=== PATIENT | male | born 1945 | race Caucasian/White ===

== ENCOUNTER → 2024-01-24 08:04 | Outpatient (REF) | payer MEDICARE, OTHER, SELFPAY ==
[2024-01-24 09:00] LABS: Blood Urea Nitrogen 11 mg/dl (9-20)
== END ==
LOC: RAD 08:04
PROVIDERS: ATTENDING PHYSICIAN Internal Medicine Hematology & Oncology; FAMILY PHYSICIAN Internal Medicine
DX: C18.7 Malignant neoplasm of sigmoid colon (principal); D50.0 Iron deficiency anemia secondary to blood loss (chronic)
CPT/HCPCS: 36415; 71260; 74177; 82565; 84520; Q9967

== ENCOUNTER 2024-02-07 23:38 | Observation (INO) | payer MEDICARE, OTHER, SELFPAY ==
[2024-02-07 18:09] VITALS: BP 151/84
[2024-02-07 19:00] VITALS: BP 105/12
[2024-02-07 19:03] LABS: % Basophils 0.5 % (0-2); % Eosinophils 1.8 % (0-6); % Immature Granulocytes 0.2 % (0-0.5); % Lymphocytes 28.5 % (20.5-51.1); % Monocytes 15.4 % (1.7-9.3); % Neutrophils 53.6 % (42.2-75.2); Absolute Eosinophils 0.1 10^3/uL (0-0.7); Absolute Lymphocytes 1.6 10^3/uL (1.2-3.4); Absolute Monocytes 0.9 10^3/uL (0.1-0.6); Hematocrit 42.1 % (39.0-52.0); Hemoglobin 13.5 g/dL (13.0-18.0); Mean Corp Hgb Conc. 32.1 g/dL (33.0-37.0); Mean Corpuscular Volume 87.3 fL (80.0-94.0); Mean Platelet Volume 10.7 fL (7.4-10.4); Nucleated Red Blood Cells % 0 % (-); Platelet Count 160 10^3/uL (130-400); Red Blood Cell Count 4.82 10^6/uL (4.70-6.10); Red Cell Dist. Width 14.2 % (11.5-14.5); White Blood Cell Count 5.5 10^3/uL (4.8-10.8)
--- NOTE | 2024-02-07 19:05 | ED.CVA ---
History of Present Illness
General
Chief Complaint: CVA/TIA Symptoms
Time Seen by Provider: 02/07/24 18:13
Onset of Stroke Symptoms
Onset of symptoms known: Yes
Date of onset of symptoms: 02/07/24
Time of onset of symptoms: 17:00
History of Present Illness
History of Present Illness:
78-year-old male presents to the emergency department for evaluation of a 10-minute episode of slurred speech and left-sided facial droop that occurred after waking up from a nap at 1700 hrs. today. witnessed the episode and reports it lasted
10 minutes before resolving. administered him 81 mg aspirin during the event. No prior history of stroke. Does not take any antiplatelets or anticoagulants. Currently denies any complaints. No associated chest pain or shortness of breath
Past History
Past History
ED Past Medical History: HTN
ED Past Surgical History: Appendectomy, Cholecystectomy, Tonsilectomy and Other
Social History
Tobacco: Non-smoker
Personal:
Living: with family
Review of Systems
Review of Systems
Allergies reviewed?: Yes
All Other Systems: ROS reviewed and negative except as documented in HPI and ROS
Phy Exam
Physical Exam
Physical Exam:
GEN: Well appearing, NAD, WDWN
HEENT: Oral mucosa moist, no scleral icterus, no nasal congestion
Cardiac: Regular rate
Lung: No respiratory distress, no tachypnea
MSK: No gross deformity or injuries
Skin: Good color, no pallor or jaundice, no rashes
Neuro: AO x3; CN II-XII grossly intact. BUE strength 5/5 in all juan, sensation intact and symmetric. BLE strength 5/5 in all juan, sensation intact and symmetric
Psych: Calm, cooperative
Course
Orders/Labs/Results
Orders:
Orders
02/07/24 18:46
Electrocardiogram (*1) Urgent
Reason for Study: TIA/Stroke
EKG- Treatment ONCE
02/07/24 18:57
Complete Blood Count/With Diff Urgent
Comprehensive Metabolic Panel Urgent
02/07/24 19:04
CT Head & Neck Angio W/wo IV Urgent
Comment:
Reason For Exam: TIA, facial droop/slurred speech
02/07/24 19:44
Urinalysis Reflex To Culture Urgent
Date Specimen was Collected: 02/07/24
Time Specimen was Collected: 19:41
02/07/24 22:04
Aspirin 325 mg PO NOW STA
Clopidogrel Bisulfate [Plavix] 300 mg PO NOW STA
02/07/24 22:31
Admit/Transfer Patient As Directed
Co-Sign Provider:
Level of Care: Observation services
Assign to:: Telemetry
Physician / Group: aryan
Diagnosis: TIA
Reason for Telemetry: CVA/TIA
Date to Stop Telemetry: 02/10/24
Time to Stop Telemetry: 11:00
PRN Pain Medication Management As Directed
May give lesser potent ordered pain med per pt: Yes
preference::
Protocol:: Medication orders for pain may be administered in a
manner that supports deferring to patient preference
when the pt is:
- Requesting an ordered lesser potent pain medication.
Least to most potent pain medications are defined
as: acetaminophen < NSAID < tramadol < opioids
(morphine, oxycodone, hydromorphone).
- Requesting a lesser dose of the same medication IF
ORDERED.
- Requesting a less intrusive route of administration
if both routes are prescribed by the provider (PO <
IV).
02/07/24 22:32
Code Status As Directed
Resuscitation Status: Full Code
02/08/24 00:50
Acetaminophen [Tylenol/Feverall] 650 mg RECTAL Q4HPRN PRN
Acetaminophen [Tylenol] 650 mg PO Q4HPRN PRN
Clonazepam [Klonopin] 0.5 mg PO DAILYPRN PRN
02/08/24 00:50
Case Management Consult ONCE
Case Management Consult: Discharge Planning
Comment: stroke/tia
DIETARY CONSULT Routine
Reason for Consult: stroke/TIA
NEUROLOGY CONSULT Urgent
Consulting Provider: Kelvin Malloy
Was physician already notified: Yes
Pr Internship Urgent
MR Brain Without Contrast Routine
Comment:
Reason For Exam: stroke/TIA
Recent pill cam endoscopy?: No
Activity As Directed
Activity Level: As Tolerated
NIH Stroke Scale As Directed
Directions: Per protocol
Comment: every shift and with any change in condition or mental status
Neurological Checks As Directed
Frequency: q4h
Additional Instructions:: q4h x 24h upon admission to the floor, then qshift & with any change in condition
and mental status
Patient Education As Directed
Type: Stroke education packet
Comment: provide to patient and family
Pneumatic Compression Sleeves As Directed
Type: Thigh high
Vital Signs As Directed
Frequency: Per unit guidelines
Ot Eval And Treat Routine
Pt Eval And Treat Routine
Activity Level: As Tolerated
Speech Therapy Eval & Treat Routine
DX Deep Vein Thrombosis Video Routine
02/08/24 Breakfast
Cholesterol Lowering
At Your Request: Full Participation
Cardiovascular Evaluation IN AM
Glycohemoglobin (HgbA1c) Routine
02/08/24 08:00
Aspirin Chewable [Low Strength Aspirin] 81 mg PO DAILY
Clopidogrel Bisulfate [Plavix] 75 mg PO DAILY
Diazepam [Valium] 5 mg PO ONCE ONE
Pantoprazole [Protonix] 40 mg PO DAILY
02/08/24 12:00
Atorvastatin [Lipitor] 40 mg PO NOON
Chlorthalidone [Hygroton] 12.5 mg PO NOON
Fluoxetine HCl [Prozac] 40 mg PO NOON
02/10/24 11:00
DC Protocol for Telemetry ONCE
Abnormal Lab Results
02/07/24
18:57
MCHC 32.1 L g/dL
(33.0-37.0)
MPV 10.7 H fL
(7.4-10.4)
Absolute Monos (auto) 0.9 H 10^3/uL
(0.1-0.6)
Monocytes % 15.4 H %
(1.7-9.3)
Glucose 111 H mg/dl
(70-99)
Total Protein 6.1 L g/dl
(6.3-8.2)
Albumin 3.4 L g/dl
(3.5-5.0)
02/07/24 18:57
02/07/24 18:57
Vital Signs
Initial and Last Documented VS:
Initial Vital Signs
Pulse Resp BP Pulse Ox
74 20 151/84 99
02/07/24 18:09 02/07/24 18:09 02/07/24 18:09 02/07/24 18:09
Last Documented Vital Signs
Temp Pulse Resp BP Pulse Ox
98.8 F 69 20 148/86 98
02/08/24 01:07 02/08/24 01:07 02/08/24 01:07 02/08/24 01:07 02/08/24 01:07
MDM/Problems Addressed
MDM/Problems Addressed:
Patient loretta asymptomatic in the emergency department. Although CT angiogram is reassuring patient will be admitted to the hospitalist service for further neuroevaluation and MRI. Will load dual antiplatelet therapy at this time. Case was
discussed via [employer] messaging with neurology who agrees with plan
*Critical Care Note
Total Time (30-74mins, 75-104mins- exclusive of procedures): Not Applicable
ED Attending Note
-
Portions of this chart may have been created with voice recognition software.� Occasional wrong word or��sound alike� substitutions may have occurred due to the inherent limitations of voice recognition software.
Discharge Plan
Departure
Patient Disposition: Admit
Date of Disposition: 02/07/24
Time of Disposition: 22:06
Admit to: Med/Surg
Presentation/result/management discussed w/ accepting MD/DO: Hospitalist
Discharge Problem:
Transient ischemic attack (TIA)
Interventions
Interventions:
*Risk Screen - Suicide Last Done: 02/08/24 01:06
*General Assessment Last Done: 02/07/24 18:45
*Neglect/Abuse Screening Last Done: 02/07/24 18:45
*ED COVID-19 Vaccine History Last Done: 02/08/24 01:06
*Nursing Disposition Last Done: 02/08/24 00:52
ED- Pulmonary Assessment Last Done: 02/07/24 18:45
ED- Neurological Assessment Last Done: 02/07/24 18:16
ED- Cardiac Assessment Last Done: 02/07/24 20:17
ED Swallowing Screen Last Done: 02/07/24 18:44
Discharge Date and Time
Discharge Date/Time: 02/08/24 00:52
[2024-02-07 19:41] LABS: ALT (SGPT) 21 U/L (0-50); AST (SGOT) 28 U/L (17-59); Albumin 3.4 g/dl (3.5-5.0); Alkaline Phosphatase 45 U/L (38-126); Blood Urea Nitrogen 14 mg/dl (9-20); Calcium 8.4 mg/dl (8.4-10.2); Carbon Dioxide 26 mmol/L (22-30); Chloride 104 mmol/L (98-107); Glucose 111 mg/dl (70-99); Potassium 3.8 mmol/L (3.5-5.1); Sodium 139 mmol/L (135-145); Total Bilirubin 0.4 mg/dl (0.2-1.3); Total Protein 6.1 g/dl (6.3-8.2); eGFR > 60.00
[2024-02-07 19:55] LABS: Urine Albumin Negative (Neg - Trace); Urine Bilirubin Negative (Negative); Urine Character Clear (Clear); Urine Color Straw; Urine Glucose Negative (Negative); Urine Ketone Negative (Negative); Urine Leukocyte Negative (Negative); Urine Nitrite Negative (Negative); Urine Occult Blood Negative (Negative); Urine Urobilinogen Negative (Neg - 1+)
--- NOTE | 2024-02-07 22:07 | HPS.HSE ---
Addendum entered and electronically signed by Rahul Esquivel DO 02/07/24 23:54:
Patient seen and examined independently. Agree with findings and plan as set forth by KATHYA Mcgowan.
Patient is a 78y M with PMH significant for prostate cancer, colon cancer and hypertension who presents to ED for evaluation of speech abnormality and L facial droop. Patient took a nap this afternoon. He woke to use the bathroom and then fell
asleep again a short time later. When he woke a second time he felt 'out of sorts'. His noted L facial droop and patient appeared to be having difficulty speaking with slurring words and thick speech. Patient denies any weakness of the arms
or legs. No headache or vision changes. No prior history of similar symptoms.
Ass:
Dysarthria, Facial Droop
CVA / TIA
Benign Hypertension
Dyslipisemia
Anxiety / Depression
GERD
Plan:
Observe overnight for further evaluation and treatment.
Patient is symptom-free at present.
Follow neuro exam overnight.
MRI and Neuro evals in the AM.
DAPT for now.
Original Note:
Family Physician
-
Family Physician: Clinton Cuenca
Chief Complaint
-
expressive aphasia
slurred speech
left facial droop
History of Present Illness
78-year-old male with PMH for prostate cancer, colon cancer, GERD, hyperlipidemia, hypertension, tremor, depression presented to us with slurred speech, expressive aphasia, left facial droop. Patient woke up from a nap and noted to have slurred and
expressive aphasia associated with left facial droop. The symptoms lasted for 10 minutes. His gave him a baby aspirin. Patient denied any headache, dizzy. Patient denied any numbness, tingling, blurred vision. Patient denied any chest pain
or short of breath. Patient denied abdominal pain, nausea, vomiting, diarrhea. Patient denied dysuria,hematuria.
CVA aspirin Plavix in the ER. Admitting for further management
Medical History
Past Medical History
Past Medical History: Reports Other
Additional Past Medical History:
prostate cancer
colon cancer
arteriosclerosis of b/l carotid arteries
gerd
hld
htn
depression
IBS
Past Surgical History: Reports Other
Additional Past Surgical History:
colon cancer resection
tonsillectomy
appendectomy
left lobe of the thyroid removed
left meniscus repair
cholecystectomy
prostatectomy
left inguinal hernia repair
melanoma removal
MOHS surgery
ventral incisional hernia repair
s
Social History
Tobacco: Non-smoker
Alcohol: None
Drug: None
Personal:
Living: With Family
Family History
Family History: Not pertinent
Allergies / Home Medications
Allergies reflects when Allergies were last updated in [facility].
Home Medications with original date entered in [facility]
Allergy/Medication List:
Allergies
Allergy/AdvReac Type Severity Reaction Status Date / Time
No Known Drug Allergies Allergy Unknown Verified 02/07/24 18:09
Home Medications
ascorbic acid (vitamin C) 1,000 mg tablet (Vitamin C) 1,000 mg PO NOON 02/01/21
atorvastatin 40 mg tablet 40 mg PO NOON 02/01/21
chlorthalidone 25 mg tablet 12.5 mg PO NOON 02/01/21
fluoxetine 40 mg capsule 40 mg PO NOON 02/01/21
Cbd Gummy 1 gummy PO HS 07/18/22
cholecalciferol (vitamin D3) 50 mcg (2,000 unit) tablet (Vitamin D3) 50 mcg PO NOON 07/18/22
pantoprazole 40 mg tablet,delayed release (Protonix) 40 mg PO DAILY 07/18/22
clonazepam 0.5 mg tablet 0.5 mg PO DAILYPRN PRN anxiety 02/07/24
Review of Systems
-
Constitutional: Reports No Symptoms
EENT: Reports No Symptoms
Respiratory: Reports No Symptoms
Cardiac: Reports No Symptoms
Abdomen/GI: Reports No Symptoms
: Reports No Symptoms
Musculoskeletal: Reports No Symptoms
Skin: Reports No Symptoms
Neurological: Reports Other (Slurred speech, expressive aphasia and left facial droop)
Endocrine: Reports No Symptoms
Hematologic/Lymphatic: Reports No Symptoms
Psych: Reports No Symptoms
Physical Exam
Vital Signs
Vital Signs
Pulse Resp BP Pulse Ox
74 12 105/12 97
02/07/24 20:15 02/07/24 20:15 02/07/24 19:00 02/07/24 20:15
Physical Exam
General: Well Developed, Well Nourished and No Apparent Distress
HEENT: NormoCephalic, Moist mucous membranes and Atraumatic
Respiratory: Clear
Cardiac: S1/S2 and Regular Rhythm; No Murmur or Rub
GI: Soft, Non Tender, Non Distended and Normal Bowel Sounds; No Organomegaly
Rectal: Deferred by Provider
Musculoskeletal: No Clubbing, No Cyanosis and No Edema
Skin: No Rash
Neuro: AO x 3 and Nonfocal/grossly intact
Psych: Calm
Laboratory Results
-
02/07/24 18:57
02/07/24 18:57
Laboratory Results
Total Bilirubin 0.4 mg/dl (0.2-1.3) 02/07/24 18:57
AST 28 U/L (17-59) 02/07/24 18:57
ALT 21 U/L (0-50) 02/07/24 18:57
Alkaline Phosphatase 45 U/L (38-126) 02/07/24 18:57
Data Reviewed
-
CT Scan: Report Reviewed by me
Lab Data: Labs Reviewed by me
Impression/Plan
-
#left facial droop/dysarthria/aphasia r/o acute CVA/TIA
-asa and Plavix continued
-obtain MRI
-obtain a1c,lipid profile
-PT/OT
-neuro consult
-head neck CTA with o acute pathology identified. No evidence of M1 nor M2 occlusion. No focal stenosis.Stable enlarged heterogeneous thyroid gland suggesting underlying nodules with substernal extension.Nonacute lacunar infarct of the left
lentiform nucleus.Moderate atrophy.
# Hyperlipidemia
-Atorvastatin continued
#Hypertension
-Chlorthalidone continued
#Anxiety
-Clonazepam continued/fluoxetine continued
#GERD
-Protonix continued
#DVT prophylaxis SCDs
#CODE STATUS
-Full code
[2024-02-07] MEDS: PLAVIX 300 MG PO (22:26)
[2024-02-07] MEDS: ASPIRIN 325 MG PO (22:26)
[2024-02-07 22:28] VITALS: BP 127/110
[2024-02-08] VITALS (7 sets, daily range): BP systolic 134–150; BP diastolic 80–94; PULSE 77–78; O2SAT 96–97; BMI 31.0
--- NOTE | 2024-02-08 01:15 | PTCARENOTE ---
Pt arrived to room 437-02. Pt ambulated from stretcher to bed. Pt AAOx3, VSS. Pt oriented to room, call murrell placed within reach. Refer to NIH stroke scale.
[2024-02-08] MEDS: PLAVIX 75 MG PO (08:25)
[2024-02-08] MEDS: LOW STRENGTH ASPIRIN 81 MG PO (08:26)
[2024-02-08] MEDS: PROTONIX 40 MG PO (08:26)
[2024-02-08] MEDS: VALIUM 5 MG PO (08:51)
[2024-02-08 09:01] LABS: HDL Cholesterol 23 mg/dl; LDL Cholesterol, Calculated 46 mg/dl; Total Cholesterol 85 mg/dl (50-199); Triglyceride 81 mg/dl (10-149); Very Low Density Lipoprotein 16 mg/dl (0-30)
--- NOTE | 2024-02-08 09:35 | CON.NEURO4 ---
Consultation - Neurology 4
-
CONSULTING PHYSICIAN: Dr. Kelvin Malloy
REFERRING PHYSICIAN: Araceli RASHEED
DICTATED BY: KATHYA Doss
DATE/TIME OF REQUEST: 02/07/2024
DATE/TIME OF CONSULTATION: 02/08/2024
Reason for Consultation: Stroke symptoms
History of Present Illness:
This is a 78 year old right handed male who has presented to the hospital with left facial droop and transient speech changes starting yesterday around 5 PM. Patient reports he was in his usual state of health when he decided to take an afternoon
nap. He woke up around 5:00 to go to the bathroom and felt normal. He then went to the bathroom and went back to sleep. He woke to dropping his iPad and felt off balance while sitting in the chair. He was able to ambulate and get himself to bed,
per had left facial droop and trouble with his speech. She then called 911 and he presented to the ER. Symptoms lasted about 15 minutes. He reports by the time EMS arrived he felt back at his baseline. He denies any numbness, tingling or
weakness. He denied any headache. He denied any trouble with his gait. He denied any trouble swallowing. He denied any trouble with his vision. He has no history of stroke. No history of TIA. No similar episodes in the past. He does report
some parasomnia. He has had sleepwalking in the past. He does not take a daily aspirin. His father did have a stroke in his 80s.
Of note patient does have a history of essential tremor. He does not have any follow-up for this. He reports this is not bothersome during activities of daily living.
Past Medical History:
prostate cancer
colon cancer
arteriosclerosis of b/l carotid arteries
gerd
hld
htn
depression
IBS
Surgical History:
colon cancer resection
tonsillectomy
appendectomy
left lobe of the thyroid removed
left meniscus repair
cholecystectomy
prostatectomy
left inguinal hernia repair
melanoma removal
MOHS surgery
ventral incisional hernia repair
Family History: Father had a stroke in his 80s
Social History: Patient lives with . He does not smoke or drink alcohol.
Allergies: NKDA
Home Medications: see below
Review of Symptoms:
Patient denies any fever, headache, chest pain, shortness of breath, GI or symptoms.
Vital Signs: see below
Physical Exam:
The patient is afebrile, heart sounds S1 and S2 are regular, and chest is clear to auscultation bilaterally.
NIH Stroke Scale:
I performed the NIH stroke scale on the patient on 02/08/2024 . The patient scored 0 points on the NIH stroke scale
Neurologic Examination:
The patient is awake, alert and oriented x 3. He is able to follow commands and answer questions appropriately. There is no aphasia or dysarthria. On cranial nerve assessment, pupils are 3 mm bilateral, round and reactive to light and
accommodation. Visual juan are full. Extraocular movements are intact. Facial sensations are intact and bilaterally symmetrical, there is no facial asymmetry. Hearing is intact bilaterally to normal conversation volume. Tongue palate and uvula
are midline. Sternocleidomastoid strengths are full bilaterally. Motor strengths are 5/5 bilateral upper and lower extremities on medical research [place] scale. There is no drift. Right hand tremor, low amplitude. Deep tendon reflexes are 2+
bilateral upper and lower extremities and Babinski is absent bilaterally. Sensations of pain, touch, temperature and vibration are intact and bilaterally symmetrical. There was no extinction noted on double simultaneous stimulation. Coordination is
intact by finger to nose bilaterally.
Lab Results: See below
Neuro Imaging:
CT head- No acute pathology identified. No evidence of M1 nor M2 occlusion. No focal stenosis.
Impression:
ROSALEE DOUGHERTY is a 78 year old M who has presented to the hospital with Transient left facial droop and speech changes.
Differentials for the patient's presentation include TIA versus acute stroke versus less likely parasomnia
Patient has the following risk factors for their symptoms Age, hypertension, cancer
IV Tenecteplase/IAT candidacy, No large vessel occlusion, symptoms resolved
Recommendations:
-MRI of the brain without contrast
-No need for additional vessel imaging as CTA was completed in the ER
-Aspirin and Plavix for 21 days then continue aspirin 81 mg indefinitely
-Continue atorvastatin 40 mg, LDL at goal 46
-Allow permissive hypertension for 24 hours then goal of normotension
-Goal normoglycemia
-Therapy evaluations ordered
-Will need outpatient follow-up in 6 to 8 weeks for stroke symptoms, can also follow-up for likely essential tremor
Discussed patient care with patient and neurologist, Dr. Malloy
Medication and Allergies
Home Medications
Home Medications
�Medication �Instructions �Recorded
ascorbic acid (vitamin C) 1,000 mg 1,000 mg PO NOON 02/01/21
tablet (Vitamin C)
atorvastatin 40 mg tablet 40 mg PO NOON 02/01/21
chlorthalidone 25 mg tablet 12.5 mg PO NOON 02/01/21
fluoxetine 40 mg capsule 40 mg PO NOON 02/01/21
Cbd Gummy 1 gummy PO HS 07/18/22
cholecalciferol (vitamin D3) 50 50 mcg PO NOON 07/18/22
mcg (2,000 unit) tablet (Vitamin
D3)
pantoprazole 40 mg tablet,delayed 40 mg PO DAILY 07/18/22
release (Protonix)
clonazepam 0.5 mg tablet 0.5 mg PO DAILYPRN PRN anxiety 02/07/24
Allergies
Allergies
Allergy/AdvReac Type Severity Reaction Status Date / Time
No Known Drug Allergies Allergy Unknown Verified 02/07/24 18:09
Vital Signs / Labs
-
Vital Signs and Labs:
Temp Pulse Resp BP Pulse Ox
98.5 F 65 19 138/80 94
02/08/24 07:00 02/08/24 07:00 02/08/24 07:00 02/08/24 07:00 02/08/24 07:00
02/07/24 18:57
02/07/24 18:57
02/07/24
18:57
MCHC 32.1 L
MPV 10.7 H
Absolute Monos (auto) 0.9 H
Monocytes % 15.4 H
Glucose 111 H
Total Protein 6.1 L
Albumin 3.4 L
[2024-02-08 10:49] LABS: Glycohemoglobin (HgbA1c) 5.8 % (4.0-5.6)
[2024-02-08] MEDS: PROZAC 40 MG PO (11:55)
[2024-02-08] MEDS: Hygroton 12.5 MG PO (11:56)
[2024-02-08] MEDS: LIPITOR 40 MG PO (11:57)
--- NOTE | 2024-02-08 12:58 | PTOTSP ---
SPEECH THERAPY SWALLOW/SPEECH/LANGUAGE/COGNITIVE COMMUNICATION EVALUATION:
Patient exhibits grossly functional oropharyngeal swallow at this time. No history of dysphagia noted. Patient remains at risk for aspiration and related complications given acute CVA. Recommend continue Regular texture solids, thin liquids.
Medications whole with liquid as best tolerated. General aspiration precautions. ST to follow briefly to assess diet tolerance.
Patient exhibits grossly functional speech and expressive/receptive language skills, and mildly impaired cognitive communication skills characterized by reduced STM. MOCA version 8.1 was administered. Patient achieved a score of 25/30, indicating
slightly below normal level (greater than or equal to 26/30). Subscores as follows: Visuospatial/Executive functionin/5. Namin/3. Attention: 6/6. Language: 3/3. Abstraction: 2/2. Delayed Recall: 0/5. Orientation: 6/6. Patient reported mild
STM difficulties at baseline level of functioning. Given that MRI positive for acute/subacute CVA, recommend ST services for cognitive communication at the acute care level.
RECOMMEND:
1) Regular texture diet, thin liquids
2) Medications whole with liquid as best tolerated
3) General aspiration precautions
4) ST to follow
--- NOTE | 2024-02-08 14:28 | W.PN.HOSP.TC ---
Today's Communication/Plan
-
d/c
Assessment / Plan
Assessment / Plan
pt is a 78 year old male
acute CVA presenting as left facial droop/dysarthria/aphasi--cont asa/plavix x 21 days then asa thereafter--apprec neuro--CTA neg--MRI positive for Small focal area of acute to subacute infarction involving the medial left thalamus.
Hyperlipidemia--Atorvastatin continued
Essential Hypertension--Chlorthalidone continued
Anxiety--Clonazepam continued/fluoxetine continued
GERD--Protonix continued
DVT prophylaxis SCDs
CODE STATUS--Full code
OK for d/c
Anticipated Discharge: Today
Subjective/Interval History
-
Date of Service: February 08, 2024
pt feels back to normal
Objective Data
-
Vital Signs:
max temp for 24 hours
02/08/24
01:07
Temp 98.8 F
Vital Signs
Temp Pulse Resp BP Pulse Ox
98.5 F 65 19 138/80 94
02/08/24 07:00 02/08/24 07:00 02/08/24 07:00 02/08/24 07:00 02/08/24 07:00
I&O
02/07/24 02/08/24 02/09/24
06:59 06:59 06:59
Intake Total 240 / 240
Balance 240 / 240
Review of Systems
-
All other systems: Reviewed and negative
Physical Exam
-
General: Well Developed, Well Nourished and No Apparent Distress
HEENT: Normocephalic and Atraumatic
Respiratory: Clear to Auscultation; Negative Wheezes or Rhonchi
Cardiac: Regular Rhythm and S1/S2; Negative Murmur
GI: Soft, Nontender, Nondistended and Normal Bowel Sounds
Musculoskeletal: No Clubbing, No Cyanosis and No Edema
Neuro: Awake, Alert and Other (seems like mild speech issues still ongoing)
--- NOTE | 2024-02-08 14:57 | CM ---
MANUELA met with Trevor to complete IA. He lives with his and is fully independent with ambulation and ADLs, drives. He has a household personal assistant come to the home for balance and strength training. Has been doing this for 8 years and will continue
same at discharge.
Plan: Discharge to home with no needs.
--- NOTE | 2024-02-08 17:19 | W.DCSUMMARY ---
Discharge Summary
Discharge Data
Date of Admission: 02/07/24
Date of Discharge: 02/08/24
Total time spent discharging patient (in min): 25
-
Pending Results: No
Hospital Course
Primary care physician : Clinton Cuenca
Principal Discharge diagnosis : Acute stroke
Chronic Discharge diagnosis : Hyperlipidemia, essential hypertension, anxiety, gastroesophageal reflux disease, prostate cancer, colon cancer, tremors, depression
Hospital Course : Patient was a 78-year-old male with past medical history significant for prostate cancer, colon cancer, gastroesophageal reflux disease, hyperlipidemia, essential hypertension, tremors and depression who presented with slurred
speech, expressive aphasia and a left sided facial droop. Patient stated he woke up from a nap and was noted to have slurred speech with expressive aphasia and a left facial droop. Symptoms lasted for approximately 10 minutes. His gave him a
baby aspirin. He denied any headache or dizziness. He denied numbness tingling motor problems or blurred vision. Patient was admitted.
Problem #1: Acute stroke. Patient did have a head and neck CT angiography which showed no acute pathology. Symptoms stopped within 10 minutes of onset. He was seen in consultation by neurology. MRI was done which showed small focal area of acute
to subacute infarct involving the medial left thalamus. He was started on aspirin and Plavix. He should continue both for 21 days followed by aspirin alone. He was also seen in consultation by physical therapy, Occupational Therapy and speech.
He did not have any skilled needs for physical or occupational therapy. Speech did say the patient achieved a score 25 out of 30 on the MoCA which is slightly below normal level. They recommend speech services for cognitive communication as an
outpatient.
Problem #2: All other medical issues. These include Hyperlipidemia, essential hypertension, anxiety, gastroesophageal reflux disease, prostate cancer, colon cancer, tremors, depression. These medical issues were stable during his hospitalization.
Medications were continued as able.
Patient is stable for discharge home at this time. He has been given a prescription for outpatient speech therapy. If there are any questions regarding this dictation or his hospital stay, please not hesitate to call. Our office number is
[phone].
Important imaging findings :
HEAD AND NECK CT ANGIOGRAM IMPRESSION: No acute pathology identified. No evidence of M1 nor M2 occlusion. No focal stenosis.
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
Nonacute lacunar infarct of the left lentiform nucleus.
Moderate atrophy.
BRAIN MRI IMPRESSION: Small focal area of acute to subacute infarction involving the medial left thalamus.
Small focus of CSF signal intensity in the left lentiform nucleus, which most likely represents a focus of old lacunar infarction.
Mild to moderate diffuse atrophy.
Mild T2 and FLAIR white matter hyperintensities, commonly seen with aging and usually attributed to small vessel ischemic disease. These have not been shown to correlate with a focal neurologic deficit.
Tortuosity of the superior left vertebral artery which slightly compresses the anterior margin of the medulla. See above discussion.
Discharge Plan
-
Patient Disposition: Home (Routine Discharge)
Discharge Diagnosis/Procedures: acute stroke, hyperlipidemia, essential hypertension, anxiety, gastroesophageal reflux disease
Condition: Good
Diet: Low Cholesterol
Activity: As tolerated
Driving Restrictions: Not until seen by your Dr
Bathing Restrictions: None
Referrals:
Tre Cuenca MD [Family Provider] - in less than 1 week
Additional Discharge Medication Instructions: continue BOTH aspirin and clopidogrel for 21 days then continue aspirin only thereafter
Prescriptions:
New
clopidogrel 75 mg Tablet
75 mg PO DAILY Qty: 21 0RF
aspirin 81 mg Tablet,Chewable
81 mg PO DAILY Qty: 0 0RF
Continued
fluoxetine 40 MG capsule
40 mg PO NOON
atorvastatin 40 MG tablet
40 mg PO NOON
ascorbic acid (vitamin C) [Vitamin C] 1,000 MG tablet
1,000 mg PO NOON
chlorthalidone 25 MG tablet
12.5 mg PO NOON
pantoprazole [Protonix] 40 mg Tablet,Delayed Release (Dr/Ec)
40 mg PO DAILY
cholecalciferol (vitamin D3) [Vitamin D3] 50 mcg (2,000 unit) Tablet
50 mcg PO NOON
Cbd Gummy
1 gummy PO HS
clonazepam 0.5 mg Tablet
0.5 mg PO DAILYPRN PRN (Reason: anxiety)
Discharge Orders:
Discharge Patient (As Directed); Ordered 02/08/24
Ordered By: Anaya Choduhary
Discharge Date and Time
Discharge Date/Time: 02/08/24 16:00
Print Language: NEPALI
== END 2024-02-08 16:00 | disposition home or self-care (01) ==
LOC: 4 WEST ACU 23:38
PROVIDERS: Registered Nurse; ADMITTING PHYSICIAN Hospitalist; ATTENDING PHYSICIAN Internal Medicine; CONSULT PHYSICIAN Psychiatry & Neurology Neurology; EMERGENCY PHYSICIAN Emergency Medicine; FAMILY PHYSICIAN Internal Medicine
DX: I63.81 Other cerebral infarction due to occlusion or stenosis of small artery (principal); R47.1 Dysarthria and anarthria; R29.810 Facial weakness; R47.01 Aphasia; I10 Essential (primary) hypertension; F41.9 Anxiety disorder, unspecified; F32.A Depression, unspecified; K21.9 Gastro-esophageal reflux disease without esophagitis; G31.9 Degenerative disease of nervous system, unspecified; I45.10 Unspecified right bundle-branch block; G25.0 Essential tremor; E78.5 Hyperlipidemia, unspecified; K58.9 Irritable bowel syndrome, unspecified; Z85.820 Personal history of malignant melanoma of skin; Z90.49 Acquired absence of other specified parts of digestive tract; Z85.46 Personal history of malignant neoplasm of prostate; Z85.038 Personal history of other malignant neoplasm of large intestine; Z82.3 Family history of stroke
CPT/HCPCS: 70496; 70498; 70551; 80053; 80061; 81003; 83036; 85025; 92523; 92610; 93005; 97161; 97165; 99285; G0378; Q9967

== ENCOUNTER → 2024-03-27 13:46 | Outpatient (REF) | payer MEDICARE, OTHER, SELFPAY ==
--- NOTE | 2024-03-27 14:54 | CARDSERVLU ---
Echocardiogram with Lumason completed after protocol screening completed. Allergies verified.
Patent IV site: _Rt AC___
IV site flushed with 0.9% NaCl pre and post administration.
Diluted bolus method utilized to enhance visualization of ventricular stephens.
Total volume given: __2.0__ mL
Patient tolerated all procedures well without complications.
#22 malachi placed Rt AC. Lumason given. INT d/c'd. pressure held. No bleeding noted.
== END ==
LOC: RCS 13:46
PROVIDERS: ATTENDING PHYSICIAN Psychiatry & Neurology Vascular Neurology; FAMILY PHYSICIAN Internal Medicine; REFERRING PHYSICIAN Internal Medicine Cardiovascular Disease
DX: I69.30 Unspecified sequelae of cerebral infarction (principal)
CPT/HCPCS: 93306; Q9950